=== PATIENT | female | born 1995 | race Caucasian/White ===

== ENCOUNTER 2017-01-21 07:31 | Day surgery (SDC) | payer BC ==
[2017-01-16 10:38] LABS: HEMOGLOBIN 14.7 g/dL (12.0-16.0)
[2017-01-16 10:53] LABS: BUN (BLOOD UREA NITROGEN) 9 MG/DL (6-23); CALCIUM, SERUM 9.4 MG/DL (8.5-10.4); CHLORIDE, SERUM 105 MMOL/L (96-112); CO2 (CARBON DIOXIDE) 32 MMOL/L (24-34); CREATININE 0.69 MG/DL (0.55-1.02); GFR AFRICAN AMERICAN 143 ML/MIN (>=60); GFR NON AFRICAN AMERICAN 124 ML/MIN (>=60); POTASSIUM, SERUM 4.3 MMOL/L (3.5-5.3); SODIUM, SERUM 143 MMOL/L (135-148)
[2017-01-16 10:54] LABS: GLUCOSE, SERUM 75 MG/DL (60-99)
--- NOTE | ~2017-01-21 | OP ---
Record Of Operation [facility] [address] [place]. [address] NAME: HARJEET PRINCE : [birth year] STATUS : [facility]#: [id number] AGE: 21 ADM/REG DATE : 01/21/17 MR#: [id number] REPORT SERV DATE: 01/21/17 DICTATED BY: JOHN PERSAUD DATE: 01/21/17 REPORT STATUS : Draft TRANSCRIBED BY: MODL DATE: 01/21/17 DATE OF PROCEDURE: 01/21/2017 PREOPERATIVE DIAGNOSIS: Impacted teeth. POSTOPERATIVE DIAGNOSIS: Impacted teeth. OPERATION: Surgical excision. DESCRIPTION OF PROCEDURE: After induction of general endotracheal anesthesia, face and mouth were prepped and draped in the usual manner. The patient received 600 mg of clindamycin intravenously. Bilateral mandibular blocks were administered utilizing 0.5% Marcaine with 1:200,000 epinephrine solution, total of 4 mL. Next, a mucoperiosteal flap was reflected from left posterior mandible and overlying bone was removed by air turbine handpiece. The tooth was sectioned and delivered by elevator technique and the follicular tissue debrided. The mucoperiosteum was reapproximated with 3-0 plain gut suture. Attention was turned to the right posterior mandible and the impacted right mandibular 3rd molar was removed in a similar fashion. The throat pack was removed. The pharynx was suctioned clear and intermaxillary gauze pressure was placed for hemostasis. The patient was allowed to awaken on the inflated nasoendotracheal tube having tolerated procedure well. BLOOD LOSS: Less than 50 mL. IV FLUIDS: 500 mL of lactated Ringer's. WT/MODL John Persaud D.D.S. / [id number] CC: Vin Lindsay KATRINA V.
[~2017-01-21 07:31] MED LIST: ADDER10 PO; BYSTOLIC2.5 MG PO; MACROBID PO; NEXIUM20 M1 PO; STERAP512 PO; SYMBICORT 160/41 INH INH; V2 PO; VENTOLIN HFA; VENTOLIN HFA INH; WELLXL300 PO
== END 2017-01-21 13:59 | disposition home or self-care (01) ==
LOC: SDC 07:31
PROVIDERS: Oral & Maxillofacial Surgery
PROC: 0CTX0Z1 Resection of Lower Tooth, Multiple, Open Approach (ICD-10-PCS; principal; 2017-01-21 08:45)
DX: M26.30 Unspecified anomaly of tooth position of fully erupted tooth or teeth (principal); J45.909 Unspecified asthma, uncomplicated; F41.0 Panic disorder [episodic paroxysmal anxiety]; K21.9 Gastro-esophageal reflux disease without esophagitis; K58.9 Irritable bowel syndrome, unspecified; Z88.0 Allergy status to penicillin; Z88.1 Allergy status to other antibiotic agents; Z82.49 Family history of ischemic heart disease and other diseases of the circulatory system; Z79.899 Other long term (current) drug therapy
CPT/HCPCS: 80048; 84703; 85014; 85018; 88300; 93005; A9270-GY; J0690; J2250; J2405; J2550; J3010